=== PATIENT | male | born 1965 | race Caucasian/White ===

== ENCOUNTER 2016-06-17 07:55 | Emergency (ER) | payer BC ==
[~2016-06-17] VITALS: Ht 180.3 cm; Wt 116.1 kg
[2016-06-17 09:53] VITALS: BP 140/85
== END 2016-06-17 09:53 | disposition home or self-care (01) ==
LOC: ED 07:55
DX: S29.011A Strain of muscle and tendon of front wall of thorax, initial encounter (principal); R10.9 Unspecified abdominal pain; R03.0 Elevated blood-pressure reading, without diagnosis of hypertension; Z90.49 Acquired absence of other specified parts of digestive tract; X58.XXXA Exposure to other specified factors, initial encounter; Y93.89 Activity, other specified; Y92.89 Other specified places as the place of occurrence of the external cause; Y99.8 Other external cause status
CPT/HCPCS: J1885